=== PATIENT | female | born 1980 | race Two or more races ===

== ENCOUNTER 2021-11-25 01:52 | Emergency (ER) | payer MEDICAID ==
[~2021-11-25] VITALS: Ht 170.2 cm; Wt 104.3 kg
[2021-11-25] MEDS ORDERED: SODIUM CHLORIDE 0.9% 1,000 ML IV ONE (02:00)
[2021-11-25] MEDS ORDERED: ONDANSETRON HCL 4 MG/2 ML VIAL IV ONE (02:00)
[2021-11-25 02:57] LABS: Urine Bacteria NONE SEEN /hpf (None Seen); Urine Blood Negative /uL (Negative); Urine Specific Gravity 1.015 (1.001-1.035); Urine WBC 9 /hpf (0 - 5)
[2021-11-25] MEDS ORDERED: NITR-87 PO (07:09)
[2021-11-25 08:09] VITALS: BP 155/77
== END 2021-11-25 08:10 | disposition home or self-care (01) ==
LOC: ER 01:52
DX: F11.23 Opioid dependence with withdrawal (principal); F41.9 Anxiety disorder, unspecified; N39.0 Urinary tract infection, site not specified; Z79.899 Other long term (current) drug therapy; Z88.8 Allergy status to other drugs, medicaments and biological substances
CPT/HCPCS: 81001; 96374; 99283; J2405